=== PATIENT | male | born 1970 | race Caucasian/White ===

== ENCOUNTER 2018-10-08 15:51 | Inpatient (IN) | payer OTHER ==
[2018-10-08 18:17] VITALS: BMI 25.1
--- NOTE | 2018-10-08 19:01 | HP ---
CIWA Score Nausea/Vomitin Muscle Tremors: 2 Anxiety: 3 Agitation: 1-Slight > Activity Paroxysmal Sweats: 2 Orientation: 1-Uncertain about Date Tacttile Disturbances: 2-Mild Itch/Numbness/Burn Auditory Disturbances: 1-Very Mild Visual Disturbances: 1-Very Mild Sensitivity Headache: 2-Mild CIWA-Ar Total Score: 17 - Admission Criteria OASAS Guidelines: Admission for Medically Managed Detox: Requires at least one of the followin. CIWA greater than 12 2. Seizures within the past 24 hours 3. Delirium tremens within the past 24 hours 4. Hallucinations within the past 24 hours 5. Acute intervention needed for co occurring medical disorder 6. Acute intervention needed for co occurring psychiatric disorder 7. Severe withdrawal that cannot be handled at a lower level of care (continued vomiting, continued diarrhea, abnormal vital signs) requiring intravenous medication and/or fluids 8. Admission ROS S - [facility] Chief Complaint: WITHDRAWAL SYMPTOMS Allergies/Adverse Reactions: Allergies Allergy/AdvReac Type Severity Reaction Status Date / Time No Known Allergies Allergy Verified 10/08/18 18:56 History of Present Illness: 48 Y.O. MAN WITH AN EXTENSIVE HISTORY OF XANAX AND COCAINE DEPENDENCE IS HERE SEEKING DETOX. HE REPORTS HE LAST COMPLETED DETOX AND REHAB IN 08/2017 AT [facility]. HE STATES HE IS CURRENTLY ENROLLED AT [facility] AND REPORTS HE LAST MEDICATED TODAY (10/08/18) AT 180MG OF METHADONE. Exam Limitations: No Limitations - Ebola screening Have you traveled outside of the country in the last 21 days: No Have you had contact with anyone from an Ebola affected area: No Have you been sick,other than usual withdrawal symptoms: No Do you have a fever: No - Review of Systems Constitutional: Loss of Appetite, Unintentional Wgt. Loss EENT: reports: Tearing, Nose Congestion Respiratory: reports: Shortness of Breath Cardiac: reports: Lightheadedness GI: reports: Nausea, Poor Appetite : reports: No Symptoms Reported Musculoskeletal: reports: Back Pain, Joint Pain Integumentary: reports: No Symptoms Reported Neuro: reports: Headache, Tremors Endocrine: reports: No Symptoms Reported Hematology: reports: Anemia (ZURI) Psychiatric: reports: Anxious, Depressed Other Systems: Reviewed and Negative Patient History - Patient Medical History Hx Anemia: Yes (ZURI ) Hx Asthma: No Hx Chronic Obstructive Pulmonary Disease (COPD): Yes Hx Cancer: No Hx Cardiac Disorders: No Hx Congestive Heart Failure: No Hx Hypertension: Yes Hx Hypercholesterolemia: Yes Hx Pacemaker: No HX Cerebrovascular Accident: Yes (REPORTS MINI STROKES "FEW YEARS AGO') Hx Seizures: Yes (BENZO INDUCED-2016) Hx Dementia: No Hx Diabetes: No Hx Gastrointestinal Disorders: No Hx Liver Disease: No Hx Genitourinary Disorders: No Hx Sexually Transmitted Disorders: No Hx Renal Disease (ESRD): No Hx Thyroid Disease: No Hx Human Immunodeficiency Virus (HIV): No Hx Hepatitis C: Yes (UNTREATED AND REPORTS UNDECTABLE ) Hx Depression: Yes (ADMITTED TO [facility] FOR 1 MONTH D/T DEPRESSION IN 2017) Hx Suicide Attempt: Yes (06/2017: ATTEMPTED OVERDOSE ) Hx Bipolar Disorder: Yes Hx Schizophrenia: No - Patient Surgical History Past Surgical History: Yes Hx Appendectomy: Yes (1989) Anesthesia Reaction: No - PPD History Previous Implant?: Yes Documented Results: Negative w/o proof Implanted On Prior R Admission?: No PPD to be Administered?: Yes - Reproductive History Patient is a Female of Child Bearing Age (11 -55 yrs old): No - Smoking Cessation Smoking history: Current every day smoker Have you smoked in the past 12 months: Yes Aproximately how many cigarettes per day: 10 Initiated information on smoking cessation: Yes 'Breaking Loose' booklet given: 10/08/18 - Substance & Tx. History Hx Alcohol Use: No Hx Substance Use: Yes Substance Use Type: Tranquilizers Hx Substance Use Treatment: Yes (DETOX AND REHAB: 08/2017 AT [facility] ) - Substances Abused Alprazolam (Xanax) Route: Oral Frequency: Daily Amount used: 18MG Age of first use: 19 Date of Last Use: 10/07/18 Cocaine Route: Smoking Frequency: 3-6 times per week Amount used: $20 Age of first use: 13 Date of Last Use: 10/06/18 Family Disease History - Family Disease History Family History: Unable to Obtain (PT. ADOPTED) Admission Physical Exam S - Vital Signs Vital Signs: Vital Signs - 24 hr 10/08/18 18:15 Temperature 98.8 F Pulse Rate 65 Respiratory 18 Rate Blood Pressure 148/98 - Physical General Appearance: Yes: Disheveled, Anxious HEENTM: Yes: Hearing grossly Normal, Normocephalic, Normal Voice Respiratory: Yes: Chest Non-Tender, Lungs Clear, Normal Breath Sounds, No Respiratory Distress, No Accessory Muscle Use Neck: Yes: No masses,lesions,Nodules Breast: Yes: Breast Exam Deferred Cardiology: Yes: Regular Rhythm, Regular Rate Abdominal: Yes: Normal Bowel Sounds, Non Tender Genitourinary: Yes: Other (NO COMPLAINTS REPORTED) Back: Yes: Normal Inspection Musculoskeletal: Yes: full range of Motion, Gait Steady, Pelvis Stable Extremities: Yes: Normal Capillary Refill, Normal Inspection, Normal Range of Motion, Non-Tender Neurological: Yes: Fully Oriented, Alert, Normal Mood/Affect, Normal Response Integumentary: Yes: Normal Color, Dry, Warm Lymphatic: Yes: Within Normal Limits - Diagnostic (1) Benzodiazepine dependence Current Visit: Yes Status: Chronic (2) Cocaine dependence Current Visit: Yes Status: Chronic (3) History of seizures Current Visit: No Status: Acute (4) Nicotine dependence Current Visit: Yes Status: Chronic (5) COPD (chronic obstructive pulmonary disease) Current Visit: Yes Status: Chronic (6) Hyperlipidemia Current Visit: Yes Status: Chronic (7) Opioid dependence on agonist therapy Current Visit: Yes Status: Chronic (8) History of CVA (cerebrovascular accident) Current Visit: No Status: Acute (9) Hepatitis C Current Visit: Yes Status: Chronic Cleared for Admission [facility] - Detox or Rehab [facility] Level of Care: Medically Managed Detox Regimen/Protocol: Valium S Breath Alcohol Content Breath Alcohol Content: 0 Urine Drug Screen - Results Drug Screen Negative: No Urine Drug Screen Results: THC-Marijuana, RAJ-Cocaine, OPI-Opiates, BZO- Benzodiazepines, MTD-Methadone
[2018-10-08] MEDS ORDERED: MAGNESIUM CITRATE 300 ML BOTTLE PO PRN (19:07)
[2018-10-08] MEDS ORDERED: NICOTINE POLACRILEX 2 MG GUM BC PRN (19:07)
[2018-10-08] MEDS ORDERED: IBUPROFEN 400 MG TABLET (FP) PO PRN (19:07)
[2018-10-08] MEDS ORDERED: MENTHOL/PHENOL 1 EACH UD MM PRN (19:07)
[2018-10-08] MEDS ORDERED: LOPERAMIDE HCL 2 MG CAPSULE PO PRN (19:07)
[2018-10-08] MEDS ORDERED: diazePAM 5 MG TABLET PO ONE (19:07)
[2018-10-08] MEDS ORDERED: hydrOXYzine PAMOATE 50 MG CAPSULE (FP) PO PRN (19:07)
[2018-10-08] MEDS ORDERED: MAGNESIUM HYDROX 2400MG/30ML ORAL SUSPENSION 30 ML CUP PO PRN (19:07)
[2018-10-08] MEDS ORDERED: P-EPHED 60MG/TRIPROLIDI 2.5MG TABLET PO PRN (19:07)
[2018-10-08] MEDS ORDERED: guaiFENesin/D-METHORPHAN HB 10 ML UNIT-DOSE CUPS PO PRN (19:07)
[2018-10-08] MEDS ORDERED: ACETAMINOPHEN 325 MG TABLET (FP) PO PRN (19:07)
[2018-10-08] MEDS ORDERED: SUVOREXANT 10 MG TABLET PO PRN (19:12)
[2018-10-08] MEDS ORDERED: MELATONIN 5 MG TABLETS PO PRN (22:00)
[2018-10-08] MEDS: LISINOPRIL 10 MG TABLET (FP) PO SCH (22:08)
[2018-10-08] MEDS: ATORVASTATIN CA 20 MG TABLET (FP) PO SCH (22:08)
[2018-10-08] MEDS: THIAMINE HCL 100 MG TABLET (FP) PO SCH (22:09)
[2018-10-08] MEDS: diazePAM 5 MG TABLET PO SCH (22:41)
[2018-10-09] MEDS: diazePAM 5 MG TABLET PO SCH ×3 (05:17→22:55)
[2018-10-09 10:43] LABS: HEMOGLOBIN 13.1 GM/dL (11.7-16.9); MCH 29.8 pg (25.7-33.7); MCHC 34.4 g/dl (32.0-35.9); MEAN CELL VOLUME 86.6 fl (80-96); MEAN PLT VOLUME 9.1 fl (7.5-11.1); PLATELET COUNT 215 K/MM3 (134-434); RBC 4.39 M/mm3 (4.00-5.60); RDW 14.8 % (11.9-15.9); WHITE BLOOD COUNT 7.1 K/mm3 (4.0-10.0)
[2018-10-09] MEDS: LISINOPRIL 10 MG TABLET (FP) PO SCH (10:46)
[2018-10-09] MEDS: NICOTINE 14 MG/24 HOURS TOPICAL PATCH TD SCH (10:46)
[2018-10-09] MEDS: PRENATAL VITAMINS W/ FOLIC ACID TABLET (FP) PO SCH (10:46)
[2018-10-09] MEDS: diazePAM 5 MG TABLET PO PRN ×2 (10:46→19:54)
--- NOTE | 2018-10-09 10:49 | CONSULT ---
[facility] Psychiatric Consult - Data Date of interview: 10/09/18 Admission source: [facility] Identifying data: This the first admission to [address] [place] [address] for this 48 years old single childless male,undomiciled,unemployed,supported by PA. Substance Abuse History: Reports long history of heroin use,currently on MMTP 180 mg,Xanax since 19 yo,18 mg daily,cocaine since 13 yo,spending $ 20 3-6 times a week. Medical History: Significant for HTN,COPD,Anemia,Hep C,Hyperlipidemia,H/O Mini stroke,H/O seizures. Psychiatric History: Patient reports long and extensive psychiatric history ,dx with Bipolar disorder about 10 years ago.Patient reports a few psychiatric hospitalizations,most recent to [facility] in Jun 2018 due to severe depression,drug use.Patient reports a few suicidal attempts (DOD).He wason different mood stabilizers,but stopped all psychotropic medications more than 1 year ago and is not willing to restart it at [facility] since he"feels ok mentally. " Physical/Sexual Abuse/Trauma History: Patient denies. Mental Status Exam - Mental Status Exam Alert and Oriented to: Time, Place, Person Cognitive Function: Grossly Intact Patient Appearance: Unkempt Mood: Anxious Affect: Mood Congruent, Labile Patient Behavior: Cooperative Speech Pattern: Clear Voice Loudness: Normal Thought Process: Goal Oriented Thought Disorder: Not Present Hallucinations: Denies Suicidal Ideation: Denies Homicidal Ideation: Denies Insight/Judgement: Fair Sleep: Fair Appetite: Fair Muscle strength/Tone: Normal Gait/Station: Normal Psychiatric Findings - Problem List ([place] 1, 2,3) (1) Benzodiazepine dependence Current Visit: Yes Status: Chronic (2) Hepatitis C Current Visit: Yes Status: Chronic (3) Hyperlipidemia Current Visit: Yes Status: Chronic (4) Nicotine dependence Current Visit: Yes Status: Chronic (5) Opioid dependence on agonist therapy Current Visit: Yes Status: Chronic (6) History of CVA (cerebrovascular accident) Current Visit: Yes Status: Chronic (7) Bipolar disorder Current Visit: Yes Status: Chronic - Initial Treatment Plan Initial Treatment Plan: Will monitor progress,consider mood stabilizers, antidepressants if needed.
[2018-10-09 10:58] LABS: ALBUMIN 3.7 g/dl (3.4-5.0); ALK PHOS 85 U/L (45-117); ANION GAP 9 MMOL/L (8-16); BILIRUBIN,TOTAL 0.4 mg/dL (0.2-1); BLOOD UREA NITROGEN 14 mg/dL (7-18); CALCIUM 8.6 mg/dL (8.5-10.1); CHLORIDE 104 mmol/L (98-107); CO2 29 mmol/L (21-32); CREATININE 0.8 mg/dL (0.55-1.3); GLUCOSE,RANDOM 81 mg/dL (74-106); POTASSIUM 4.2 mmol/L (3.5-5.1); SGOT/AST 25 U/L (15-37); SGPT/ALT 20 U/L (13-61); SODIUM 143 mmol/L (136-145); TOT PROT 7.3 g/dl (6.4-8.2)
[2018-10-09] MEDS ORDERED: METHADONE HCL 10 MG TABLET PO ONE (11:23)
[2018-10-09] MEDS ORDERED: METHADONE 160 MG, METHADONE 20 MG PO ONE (11:30)
--- NOTE | 2018-10-09 11:51 | EKG ---
Test Reason : Blood Pressure : / mmHG Vent. Rate : 048 BPM Atrial Rate : 048 BPM P-R Int : 172 ms QRS Dur : 088 ms QT Int : 458 ms P-R-T Axes : 062 052 067 degrees QTc Int : 409 ms SINUS BRADYCARDIA OTHERWISE NORMAL ECG NO PREVIOUS ECGS AVAILABLE Confirmed by SARMAD RODRIGUEZ, KALA ([id number]) on 10/09/2018 11:50:48 AM Referred By: Confirmed By:KALA BAÑUELOS MD
[2018-10-09] MEDS ORDERED: METHADONE HCL 40 MG DISPERSABLE TABLET ONE (12:07)
[2018-10-09] MEDS ORDERED: METHADONE HCL 10 MG TABLET ONE (12:07)
--- NOTE | 2018-10-09 12:17 | PN ---
S CIWA - CIWA Score Nausea/Vomitin-No Nausea/No Vomiting Muscle Tremors: 4-Moderate,w/Arms Extend Anxiety: 4-Mod. Anxious/Guarded Agitation: 4-Moderately Restless Paroxysmal Sweats: 3 Orientation: 0-Oriented Tacttile Disturbances: 0-None Auditory Disturbances: 0-None Visual Disturbances: 0-None Headache: 0-None Present CIWA-Ar Total Score: 15 BHS Progress Note (SOAP) Subjective: agitation sweats shakes interrupted sleep body aches Objective: 10/09/18 12:16 Vital Signs Temperature 98.1 F 10/09/18 09:16 Pulse Rate 66 10/09/18 09:16 Respiratory Rate 18 10/09/18 09:16 Blood Pressure 135/74 10/09/18 09:16 O2 Sat by Pulse Oximetry (%) Laboratory Tests 10/09/18 10/09/18 10/09/18 07:00 07:00 07:00 WBC 7.1 RBC 4.39 Hgb 13.1 Hct 38.0 MCV 86.6 MCH 29.8 MCHC 34.4 RDW 14.8 Plt Count 215 MPV 9.1 Sodium 143 Potassium 4.2 Chloride 104 Carbon Dioxide 29 Anion Gap 9 BUN 14 Creatinine 0.8 Creat Clearance w eGFR > 60 Random Glucose 81 Calcium 8.6 Total Bilirubin 0.4 AST 25 ALT 20 Alkaline Phosphatase 85 Total Protein 7.3 Albumin 3.7 HIV 1&2 Antibody Screen Negative HIV P24 Antigen Negative aaox3 ambulating no acute distress Assessment: 10/09/18 12:16 withdrawal sx Plan: continue detox increase fluids
[2018-10-09] MEDS: MAG HYDROX/AL HYDROX/SIMETH 30 ML UNIT-DOSE CUP PO PRN (12:23)
[2018-10-09] MEDS ORDERED: PANTOPRAZOLE 40 MG TABLET (FP) PO ONE (15:11)
[2018-10-09] MEDS: ATORVASTATIN CA 20 MG TABLET (FP) PO SCH (22:54)
[2018-10-09] MEDS: THIAMINE HCL 100 MG TABLET (FP) PO SCH (22:55)
[2018-10-10] MEDS ORDERED: METHADONE HCL 10 MG TABLET ONE (05:05)
[2018-10-10] MEDS ORDERED: METHADONE HCL 40 MG DISPERSABLE TABLET ONE (05:05)
[2018-10-10] MEDS: METHADONE 160 MG, METHADONE 20 MG PO SCH (05:56)
[2018-10-10] MEDS ORDERED: METHADONE HCL 40 MG DISPERSABLE TABLET PO SCH (06:00)
[2018-10-10] MEDS: MAG HYDROX/AL HYDROX/SIMETH 30 ML UNIT-DOSE CUP PO PRN ×2 (07:45→15:07)
[2018-10-10] MEDS: diazePAM 5 MG TABLET PO PRN ×3 (07:45→20:52)
[2018-10-10] MEDS: PRENATAL VITAMINS W/ FOLIC ACID TABLET (FP) PO SCH (10:46)
[2018-10-10] MEDS: NICOTINE 14 MG/24 HOURS TOPICAL PATCH TD SCH (10:46)
[2018-10-10] MEDS: diazePAM 5 MG TABLET PO SCH (10:46)
[2018-10-10] MEDS: PANTOPRAZOLE 40 MG TABLET (FP) PO SCH (10:46)
[2018-10-10] MEDS: LISINOPRIL 10 MG TABLET (FP) PO SCH (10:46)
--- NOTE | 2018-10-10 11:49 | PN ---
S CIWA - CIWA Score Nausea/Vomitin Muscle Tremors: 2 Anxiety: 2 Agitation: 2 Paroxysmal Sweats: 2 Orientation: 0-Oriented Tacttile Disturbances: 1-Very Mild Itch/Numbness Auditory Disturbances: 1-Very Mild Visual Disturbances: 0-None Headache: 2-Mild CIWA-Ar Total Score: 14 S Progress Note (SOAP) Subjective: Diarrhea, sweats, tremors and interrupted sleep Objective: 10/10/18 11:47 Vital Signs - 8 hr 10/10/18 10/10/18 06:00 09:42 Temperature 97.7 F 98.7 F Pulse Rate 46 L 55 L Respiratory 18 19 Rate Blood Pressure 129/71 125/65 Laboratory Last Values WBC 7.1 K/mm3 (4.0-10.0) 10/09/18 07:00 RBC 4.39 M/mm3 (4.00-5.60) 10/09/18 07:00 Hgb 13.1 GM/dL (11.7-16.9) 10/09/18 07:00 Hct 38.0 % (35.4-49) 10/09/18 07:00 MCV 86.6 fl (80-96) 10/09/18 07:00 MCH 29.8 pg (25.7-33.7) 10/09/18 07:00 MCHC 34.4 g/dl (32.0-35.9) 10/09/18 07:00 RDW 14.8 % (11.9-15.9) 10/09/18 07:00 Plt Count 215 K/MM3 (134-434) 10/09/18 07:00 MPV 9.1 fl (7.5-11.1) 10/09/18 07:00 Sodium 143 mmol/L (136-145) 10/09/18 07:00 Potassium 4.2 mmol/L (3.5-5.1) 10/09/18 07:00 Chloride 104 mmol/L (98-107) 10/09/18 07:00 Carbon Dioxide 29 mmol/L (21-32) 10/09/18 07:00 Anion Gap 9 MMOL/L (8-16) 10/09/18 07:00 BUN 14 mg/dL (7-18) 10/09/18 07:00 Creatinine 0.8 mg/dL (0.55-1.3) 10/09/18 07:00 Creat Clearance w eGFR > 60 (>60) 10/09/18 07:00 Random Glucose 81 mg/dL (74-106) 10/09/18 07:00 Calcium 8.6 mg/dL (8.5-10.1) 10/09/18 07:00 Total Bilirubin 0.4 mg/dL (0.2-1) 10/09/18 07:00 AST 25 U/L (15-37) 10/09/18 07:00 ALT 20 U/L (13-61) 10/09/18 07:00 Alkaline Phosphatase 85 U/L (45-117) 10/09/18 07:00 Total Protein 7.3 g/dl (6.4-8.2) 10/09/18 07:00 Albumin 3.7 g/dl (3.4-5.0) 10/09/18 07:00 RPR Titer Nonreactive (NONREACTIVE) 10/09/18 07:00 HIV 1&2 Antibody Screen Negative 10/09/18 07:00 HIV P24 Antigen Negative 10/09/18 07:00 Labs noted-No panic values Assessment: 10/10/18 11:48 Withdrawal sx Plan: Continue detox
[2018-10-11] MEDS: ATORVASTATIN CA 20 MG TABLET (FP) PO SCH (00:37)
[2018-10-11] MEDS: diazePAM 5 MG TABLET PO SCH ×2 (00:38→10:46)
[2018-10-11] MEDS: THIAMINE HCL 100 MG TABLET (FP) PO SCH (00:38)
[2018-10-11] MEDS ORDERED: METHADONE HCL 10 MG TABLET ONE (05:35)
[2018-10-11] MEDS ORDERED: METHADONE HCL 40 MG DISPERSABLE TABLET ONE (05:35)
[2018-10-11] MEDS: METHADONE 160 MG, METHADONE 20 MG PO SCH (05:51)
[2018-10-11] MEDS: MAG HYDROX/AL HYDROX/SIMETH 30 ML UNIT-DOSE CUP PO PRN (07:54)
[2018-10-11] MEDS: NICOTINE 14 MG/24 HOURS TOPICAL PATCH TD SCH (10:46)
[2018-10-11] MEDS: PANTOPRAZOLE 40 MG TABLET (FP) PO SCH (10:46)
[2018-10-11] MEDS: LISINOPRIL 10 MG TABLET (FP) PO SCH (10:46)
[2018-10-11] MEDS: PRENATAL VITAMINS W/ FOLIC ACID TABLET (FP) PO SCH (10:46)
[2018-10-11] MEDS ORDERED: ONDANSETRON *ODT* 4 MG TABLET SL PRN (11:27)
--- NOTE | 2018-10-11 14:46 | PN ---
S Progress Note (SOAP) Subjective: Anxiety, diarrhea, nausea, chills, sweating, interrupted sleep Objective: 10/11/18 14:44 Last Vital Signs Temp Pulse Resp BP Pulse Ox 97.9 F 47 L 18 113/66 10/11/18 14:26 10/11/18 14:26 10/11/18 14:26 10/11/18 14:26 Bradycardia: pulse 47, asymptomatic, encouraged PO hydration Laboratory Tests 10/09/18 10/09/18 10/09/18 07:00 07:00 07:00 WBC 7.1 RBC 4.39 Hgb 13.1 Hct 38.0 MCV 86.6 MCH 29.8 MCHC 34.4 RDW 14.8 Plt Count 215 MPV 9.1 Sodium 143 Potassium 4.2 Chloride 104 Carbon Dioxide 29 Anion Gap 9 BUN 14 Creatinine 0.8 Creat Clearance w eGFR > 60 Random Glucose 81 Calcium 8.6 Total Bilirubin 0.4 AST 25 ALT 20 Alkaline Phosphatase 85 Total Protein 7.3 Albumin 3.7 RPR Titer Nonreactive HIV 1&2 Antibody Screen HIV P24 Antigen 10/09/18 07:00 WBC RBC Hgb Hct MCV MCH MCHC RDW Plt Count MPV Sodium Potassium Chloride Carbon Dioxide Anion Gap BUN Creatinine Creat Clearance w eGFR Random Glucose Calcium Total Bilirubin AST ALT Alkaline Phosphatase Total Protein Albumin RPR Titer HIV 1&2 Antibody Screen Negative HIV P24 Antigen Negative Labs reviewed Assessment: 10/11/18 14:45 Withdrawal symptoms Plan: Continue detox Encouraged PO water hydration Zofran 4mg SL q8hr prn for n/v
[2018-10-11] MEDS: diazePAM 5 MG TABLET PO PRN (18:02)
[2018-10-12] MEDS: THIAMINE HCL 100 MG TABLET (FP) PO SCH (00:03)
[2018-10-12] MEDS: diazePAM 5 MG TABLET PO SCH (00:03)
[2018-10-12] MEDS: ATORVASTATIN CA 20 MG TABLET (FP) PO SCH (00:03)
[2018-10-12] MEDS ORDERED: METHADONE HCL 10 MG TABLET ONE (04:37)
[2018-10-12] MEDS ORDERED: METHADONE HCL 40 MG DISPERSABLE TABLET ONE (04:37)
[2018-10-12] MEDS: METHADONE 160 MG, METHADONE 20 MG PO SCH (05:33)
[2018-10-12] MEDS ORDERED: diazePAM 5 MG TABLET PO SCH (10:00)
[2018-10-12] MEDS: NICOTINE 14 MG/24 HOURS TOPICAL PATCH TD SCH (10:28)
[2018-10-12] MEDS: LISINOPRIL 10 MG TABLET (FP) PO SCH (10:28)
[2018-10-12] MEDS: PRENATAL VITAMINS W/ FOLIC ACID TABLET (FP) PO SCH (10:28)
[2018-10-12] MEDS: PANTOPRAZOLE 40 MG TABLET (FP) PO SCH (10:28)
--- NOTE | 2018-10-12 15:02 | DS ---
[facility] Detox Discharge Summary Admission Date: 10/08/18 Discharge Date: 10/12/18 - History Present History: Cocaine Dependence, Opioid Dependence, Sedative Dependence, MMTP Additional Comments: PATIENT SCHEDULED FOR DISCHARGE FROM DETOX UNIT TO DAY. PATIENT GOING TO [facility] ([facility]) FOR AFTERCARE. PATIENT WAS DISCHARGED FROM DETOX UNIT TO BE TAKEN OVER TO REHAB UNIT IN STABLE MEDICAL CONDITION. Pertinent Past History: History of Anemia, History of Depression, HTN, Hypercholesterolemia, H.I.V., Hep C, History of seizures, Nicotine Dependence, History of C.O.P.D., History of CVA. - Physical Exam Results Vital Signs: Vital Signs Temperature 98.6 F 10/12/18 13:22 Pulse Rate 48 L 10/12/18 13:22 Respiratory Rate 18 10/12/18 13:22 Blood Pressure 118/65 10/12/18 13:22 O2 Sat by Pulse Oximetry (%) Pertinent Admission Physical Exam Findings: WITHDRAWAL SYMPTOMS. Laboratory Tests 10/09/18 10/09/18 10/09/18 07:00 07:00 07:00 WBC 7.1 RBC 4.39 Hgb 13.1 Hct 38.0 MCV 86.6 MCH 29.8 MCHC 34.4 RDW 14.8 Plt Count 215 MPV 9.1 Sodium 143 Potassium 4.2 Chloride 104 Carbon Dioxide 29 Anion Gap 9 BUN 14 Creatinine 0.8 Creat Clearance w eGFR > 60 Random Glucose 81 Calcium 8.6 Total Bilirubin 0.4 AST 25 ALT 20 Alkaline Phosphatase 85 Total Protein 7.3 Albumin 3.7 RPR Titer Nonreactive HIV 1&2 Antibody Screen HIV P24 Antigen 10/09/18 07:00 WBC RBC Hgb Hct MCV MCH MCHC RDW Plt Count MPV Sodium Potassium Chloride Carbon Dioxide Anion Gap BUN Creatinine Creat Clearance w eGFR Random Glucose Calcium Total Bilirubin AST ALT Alkaline Phosphatase Total Protein Albumin RPR Titer HIV 1&2 Antibody Screen Negative HIV P24 Antigen Negative LABS NOTED. - Treatment Hospital Course: Detox Protocol Followed, Detoxed Safely, Responded well, Discharged Condition Good, Rehab Referral Accepted Patient has Accepted a Rehab Referral to: [facility] ([place], [place]). - Medication Discharge Medications: Ambulatory Orders NK [No Known Home Medication] 10/08/18 - Diagnosis (1) Benzodiazepine dependence Current Visit: Yes Status: Acute (2) Opioid dependence on agonist therapy Current Visit: Yes Status: Chronic (3) Anemia Current Visit: Yes Status: Chronic Qualifiers: Anemia type: unspecified type Qualified Code(s): D64.9 - Anemia, unspecified (4) Bipolar disorder Current Visit: Yes Status: Chronic Qualifiers: Active/Remission status: remission status unspecified Qualified Code(s): F31.9 - Bipolar disorder, unspecified (5) COPD (chronic obstructive pulmonary disease) Current Visit: Yes Status: Chronic Qualifiers: COPD type: unspecified COPD Qualified Code(s): J44.9 - Chronic obstructive pulmonary disease, unspecified (6) Cocaine dependence Current Visit: Yes Status: Chronic Qualifiers: Substance use status: uncomplicated Qualified Code(s): F14.20 - Cocaine dependence, uncomplicated (7) Depression Current Visit: Yes Status: Chronic Qualifiers: Depression Type: unspecified Qualified Code(s): F32.9 - Major depressive disorder, single episode, unspecified (8) Hepatitis C Current Visit: Yes Status: Chronic Qualifiers: Viral hepatitis chronicity: chronic Hepatic coma status: without hepatic coma Qualified Code(s): B18.2 - Chronic viral hepatitis C (9) History of CVA (cerebrovascular accident) Current Visit: Yes Status: Chronic (10) History of seizures Current Visit: Yes Status: Chronic (11) Hyperlipidemia Current Visit: Yes Status: Chronic Qualifiers: Hyperlipidemia type: pure hypercholesterolemia Qualified Code(s): E78.00 - Pure hypercholesterolemia, unspecified; E78.0 - Pure hypercholesterolemia (12) Nicotine dependence Current Visit: Yes Status: Chronic Qualifiers: Nicotine product type: cigarettes Substance use status: uncomplicated Qualified Code(s): F17.210 - Nicotine dependence, cigarettes, uncomplicated - AMA Did Patient Leave Against Medical Advice: No
[2018-10-12 17:53] VITALS: BP 142/93; PULSE 54; TEMP 98.2
== END 2018-10-12 18:25 | disposition home or self-care (01) | DRG 773 ==
LOC: YASAS 15:51 → Y6N 20:46
PROVIDERS: ADMIT Neuromusculoskeletal Medicine & OMM; ATTEND Neuromusculoskeletal Medicine & OMM
PROC: HZ2ZZZZ Detoxification Services for Substance Abuse Treatment (ICD-10-PCS; principal; 2018-10-08)
DX: F13.230 Sedative, hypnotic or anxiolytic dependence with withdrawal, uncomplicated (principal); F11.20 Opioid dependence, uncomplicated; F14.20 Cocaine dependence, uncomplicated; F17.210 Nicotine dependence, cigarettes, uncomplicated; F31.9 Bipolar disorder, unspecified; E78.5 Hyperlipidemia, unspecified; D64.9 Anemia, unspecified; J44.9 Chronic obstructive pulmonary disease, unspecified; B18.2 Chronic viral hepatitis C; Z86.73 Personal history of transient ischemic attack (TIA), and cerebral infarction without residual deficits; Z86.69 Personal history of other diseases of the nervous system and sense organs; Z91.5 Personal history of self-harm; Z59.0 Homelessness
CPT/HCPCS: 36415; 80053; 85027; 86593; 87389; 93005; 93010

== ENCOUNTER 2018-10-12 18:57 | Inpatient (IN) | payer OTHER ==
--- NOTE | 2018-10-12 15:09 | HP ---
JENIFER RODRIGUEZ Rehab Assess/Revision - Admission History Admitted to Rehab from[facility] Date of Admission to Rehab: 10/12/2018 - Vital signs Vital Signs: NOTED; STABLE. - Findings Detox History & Physical reviewed: Yes Concur with findings: Yes Comments/Additional Findings: PATIENT'S MEDICAL / MEDICATION HISTORY REVIEWED PRIOR TO DISCHARGE FROM DETOX UNIT. PATIENT WAS DISCHARGED FROM DETOX UNIT TO BE TAKEN TO REHAB UNIT IN STABLE MEDICAL CONDITION. Inpatient Rehab Admission - Initial Determination Are CD services needed?: Yes Free of communicable disease: Yes Not in need of hospitalization: Yes - Rehab Admission Criteria Previous failed treatment: Yes Comorbidities: Yes Patient is meeting Inpatient Rehab admission criteria:: Yes
[~2018-10-12 18:57] MED LIST: ACETAMINOPHEN 325 MG TABLET (FP) PO PRN; IBUPROFEN 400 MG TABLET (FP) PO PRN; LOPERAMIDE HCL 2 MG CAPSULE PO PRN; MAG HYDROX/AL HYDROX/SIMETH 30 ML UNIT-DOSE CUP PO PRN; MAGNESIUM CITRATE 300 ML BOTTLE PO PRN; MAGNESIUM HYDROX 2400MG/30ML ORAL SUSPENSION 30 ML CUP PO PRN; MENTHOL/PHENOL 1 EACH UD MM PRN; NICOTINE POLACRILEX 2 MG GUM BUC PRN; P-EPHED 60MG/TRIPROLIDI 2.5MG TABLET PO PRN; guaiFENesin/D-METHORPHAN HB 10 ML UNIT-DOSE CUPS PO PRN
[2018-10-12] MEDS: ATORVASTATIN CA 20 MG TABLET (FP) PO SCH (22:11)
[2018-10-12] MEDS: THIAMINE HCL 100 MG TABLET (FP) PO SCH (22:11)
[2018-10-13] MEDS ORDERED: METHADONE HCL 10 MG TABLET ONE (05:05)
[2018-10-13] MEDS ORDERED: METHADONE HCL 40 MG DISPERSABLE TABLET ONE (05:06)
[2018-10-13] MEDS ORDERED: METHADONE HCL 40 MG DISPERSABLE TABLET PO SCH (06:00)
[2018-10-13] MEDS: METHADONE 160 MG, METHADONE 20 MG PO SCH (06:07)
[2018-10-13] MEDS: NICOTINE 14 MG/24 HOURS TOPICAL PATCH TD SCH (10:30)
[2018-10-13] MEDS: LISINOPRIL 10 MG TABLET (FP) PO SCH (10:30)
[2018-10-13] MEDS: PANTOPRAZOLE 40 MG TABLET (FP) PO SCH (10:30)
[2018-10-13] MEDS: PRENATAL VITAMINS W/ FOLIC ACID TABLET (FP) PO SCH (10:30)
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
[2018-10-13] MEDS: ATORVASTATIN CA 20 MG TABLET (FP) PO SCH (21:31)
[2018-10-13] MEDS: THIAMINE HCL 100 MG TABLET (FP) PO SCH (21:31)
[2018-10-14] MEDS ORDERED: METHADONE HCL 40 MG DISPERSABLE TABLET ONE (04:07)
[2018-10-14] MEDS ORDERED: METHADONE HCL 10 MG TABLET ONE (04:07)
[2018-10-14] MEDS: METHADONE 160 MG, METHADONE 20 MG PO SCH (06:06)
[2018-10-14] MEDS: LISINOPRIL 10 MG TABLET (FP) PO SCH (10:24)
[2018-10-14] MEDS: PANTOPRAZOLE 40 MG TABLET (FP) PO SCH (10:24)
[2018-10-14] MEDS: PRENATAL VITAMINS W/ FOLIC ACID TABLET (FP) PO SCH (10:24)
[2018-10-14] MEDS: NICOTINE 14 MG/24 HOURS TOPICAL PATCH TD SCH (10:24)
[2018-10-14] MEDS: ATORVASTATIN CA 20 MG TABLET (FP) PO SCH (21:34)
[2018-10-14] MEDS: THIAMINE HCL 100 MG TABLET (FP) PO SCH (21:34)
[2018-10-15] MEDS ORDERED: METHADONE HCL 10 MG TABLET ONE (02:48)
[2018-10-15] MEDS ORDERED: METHADONE HCL 40 MG DISPERSABLE TABLET ONE (02:48)
[2018-10-15] MEDS: METHADONE 160 MG, METHADONE 20 MG PO SCH (06:15)
[2018-10-15] MEDS: PRENATAL VITAMINS W/ FOLIC ACID TABLET (FP) PO SCH (10:32)
[2018-10-15] MEDS: NICOTINE 14 MG/24 HOURS TOPICAL PATCH TD SCH (10:32)
[2018-10-15] MEDS: PANTOPRAZOLE 40 MG TABLET (FP) PO SCH (10:32)
[2018-10-15] MEDS: LISINOPRIL 10 MG TABLET (FP) PO SCH (10:32)
[2018-10-15] MEDS: GABAPENTIN 300 MG CAPSULE (FP) PO SCH ×2 (14:42→22:00)
[2018-10-15] MEDS: THIAMINE HCL 100 MG TABLET (FP) PO SCH (22:00)
[2018-10-15] MEDS: ATORVASTATIN CA 20 MG TABLET (FP) PO SCH (22:00)
[2018-10-15] MEDS: QUEtiapine FUMARATE 100 MG TABLET (FP) PO SCH (22:00)
[2018-10-16] MEDS ORDERED: METHADONE HCL 40 MG DISPERSABLE TABLET ONE (04:16)
[2018-10-16] MEDS ORDERED: METHADONE HCL 10 MG TABLET ONE (04:16)
[2018-10-16] MEDS: METHADONE 160 MG, METHADONE 20 MG PO SCH (06:25)
[2018-10-16] MEDS: GABAPENTIN 300 MG CAPSULE (FP) PO SCH ×3 (06:25→21:52)
[2018-10-16] MEDS: PRENATAL VITAMINS W/ FOLIC ACID TABLET (FP) PO SCH (10:34)
[2018-10-16] MEDS: LISINOPRIL 10 MG TABLET (FP) PO SCH (10:34)
[2018-10-16] MEDS: NICOTINE 14 MG/24 HOURS TOPICAL PATCH TD SCH (10:34)
[2018-10-16] MEDS: PANTOPRAZOLE 40 MG TABLET (FP) PO SCH (10:34)
[2018-10-16] MEDS: THIAMINE HCL 100 MG TABLET (FP) PO SCH (21:51)
[2018-10-16] MEDS: ATORVASTATIN CA 20 MG TABLET (FP) PO SCH (21:52)
[2018-10-16] MEDS: QUEtiapine FUMARATE 100 MG TABLET (FP) PO SCH (21:53)
[2018-10-17] MEDS ORDERED: METHADONE HCL 40 MG DISPERSABLE TABLET ONE (04:12)
[2018-10-17] MEDS ORDERED: METHADONE HCL 10 MG TABLET ONE (04:12)
[2018-10-17] MEDS: GABAPENTIN 300 MG CAPSULE (FP) PO SCH ×3 (06:13→21:44)
[2018-10-17] MEDS: METHADONE 160 MG, METHADONE 20 MG PO SCH (06:13)
[2018-10-17] MEDS: PRENATAL VITAMINS W/ FOLIC ACID TABLET (FP) PO SCH (10:07)
[2018-10-17] MEDS: PANTOPRAZOLE 40 MG TABLET (FP) PO SCH (10:08)
[2018-10-17] MEDS: LISINOPRIL 10 MG TABLET (FP) PO SCH (10:08)
[2018-10-17] MEDS: NICOTINE 14 MG/24 HOURS TOPICAL PATCH TD SCH (10:08)
[2018-10-17] MEDS: QUEtiapine FUMARATE 100 MG TABLET (FP) PO SCH (21:44)
[2018-10-17] MEDS: ATORVASTATIN CA 20 MG TABLET (FP) PO SCH (21:44)
[2018-10-17] MEDS: THIAMINE HCL 100 MG TABLET (FP) PO SCH (21:44)
[2018-10-18] MEDS ORDERED: METHADONE HCL 40 MG DISPERSABLE TABLET ONE (03:54)
[2018-10-18] MEDS ORDERED: METHADONE HCL 10 MG TABLET ONE (03:54)
[2018-10-18] MEDS: GABAPENTIN 300 MG CAPSULE (FP) PO SCH ×3 (06:13→21:33)
[2018-10-18] MEDS: METHADONE 160 MG, METHADONE 20 MG PO SCH (06:13)
[2018-10-18] MEDS: PANTOPRAZOLE 40 MG TABLET (FP) PO SCH (09:53)
[2018-10-18] MEDS: NICOTINE 14 MG/24 HOURS TOPICAL PATCH TD SCH (09:53)
[2018-10-18] MEDS: LISINOPRIL 10 MG TABLET (FP) PO SCH (09:53)
[2018-10-18] MEDS: PRENATAL VITAMINS W/ FOLIC ACID TABLET (FP) PO SCH (09:53)
[2018-10-18] MEDS: THIAMINE HCL 100 MG TABLET (FP) PO SCH (21:33)
[2018-10-18] MEDS: ATORVASTATIN CA 20 MG TABLET (FP) PO SCH (21:34)
[2018-10-18] MEDS: QUEtiapine FUMARATE 100 MG TABLET (FP) PO SCH (21:34)
[2018-10-19] MEDS ORDERED: METHADONE 160 MG, METHADONE 20 MG PO SCH (06:00)
[2018-10-19] MEDS ORDERED: METHADONE HCL 40 MG DISPERSABLE TABLET ONE (06:03)
[2018-10-19] MEDS ORDERED: METHADONE HCL 10 MG TABLET ONE (06:03)
[2018-10-19] MEDS: METHADONE 160 MG, METHADONE 20 MG PO SCH (06:18)
[2018-10-19] MEDS: GABAPENTIN 300 MG CAPSULE (FP) PO SCH ×3 (06:18→21:53)
[2018-10-19] MEDS: NICOTINE 14 MG/24 HOURS TOPICAL PATCH TD SCH (10:01)
[2018-10-19] MEDS: PANTOPRAZOLE 40 MG TABLET (FP) PO SCH (10:01)
[2018-10-19] MEDS: LISINOPRIL 10 MG TABLET (FP) PO SCH (10:01)
[2018-10-19] MEDS: PRENATAL VITAMINS W/ FOLIC ACID TABLET (FP) PO SCH (10:01)
[2018-10-19] MEDS ORDERED: PT OWN MED DRAWER 7, Y5N ONE (10:22)
[2018-10-19] MEDS: THIAMINE HCL 100 MG TABLET (FP) PO SCH (21:53)
[2018-10-19] MEDS: ATORVASTATIN CA 20 MG TABLET (FP) PO SCH (21:53)
[2018-10-19] MEDS: QUEtiapine FUMARATE 100 MG TABLET (FP) PO SCH (21:53)
[2018-10-20] MEDS ORDERED: METHADONE HCL 10 MG TABLET ONE (03:12)
[2018-10-20] MEDS ORDERED: METHADONE HCL 40 MG DISPERSABLE TABLET ONE (03:12)
[2018-10-20] MEDS: METHADONE 160 MG, METHADONE 20 MG PO SCH (06:39)
[2018-10-20] MEDS: GABAPENTIN 300 MG CAPSULE (FP) PO SCH ×3 (06:39→21:57)
[2018-10-20] MEDS: LISINOPRIL 10 MG TABLET (FP) PO SCH (10:30)
[2018-10-20] MEDS: PANTOPRAZOLE 40 MG TABLET (FP) PO SCH (10:30)
[2018-10-20] MEDS: PRENATAL VITAMINS W/ FOLIC ACID TABLET (FP) PO SCH (10:30)
[2018-10-20] MEDS: NICOTINE 14 MG/24 HOURS TOPICAL PATCH TD SCH (10:30)
[2018-10-20] MEDS: ATORVASTATIN CA 20 MG TABLET (FP) PO SCH (21:57)
[2018-10-20] MEDS: QUEtiapine FUMARATE 100 MG TABLET (FP) PO SCH (21:57)
[2018-10-20] MEDS: THIAMINE HCL 100 MG TABLET (FP) PO SCH (21:58)
[2018-10-21] MEDS ORDERED: METHADONE HCL 10 MG TABLET ONE (04:17)
[2018-10-21] MEDS ORDERED: METHADONE HCL 40 MG DISPERSABLE TABLET ONE (04:17)
[2018-10-21] MEDS: METHADONE 160 MG, METHADONE 20 MG PO SCH (05:58)
[2018-10-21] MEDS: GABAPENTIN 300 MG CAPSULE (FP) PO SCH ×3 (05:58→21:50)
[2018-10-21] MEDS: PRENATAL VITAMINS W/ FOLIC ACID TABLET (FP) PO SCH (09:49)
[2018-10-21] MEDS: PANTOPRAZOLE 40 MG TABLET (FP) PO SCH (09:49)
[2018-10-21] MEDS: LISINOPRIL 10 MG TABLET (FP) PO SCH (09:49)
[2018-10-21] MEDS: NICOTINE 14 MG/24 HOURS TOPICAL PATCH TD SCH (09:49)
[2018-10-21] MEDS: QUEtiapine FUMARATE 100 MG TABLET (FP) PO SCH (21:50)
[2018-10-21] MEDS: THIAMINE HCL 100 MG TABLET (FP) PO SCH (21:50)
[2018-10-21] MEDS: ATORVASTATIN CA 20 MG TABLET (FP) PO SCH (21:50)
[2018-10-22] MEDS ORDERED: METHADONE HCL 10 MG TABLET ONE (04:08)
[2018-10-22] MEDS ORDERED: METHADONE HCL 40 MG DISPERSABLE TABLET ONE (04:08)
[2018-10-22] MEDS: METHADONE 160 MG, METHADONE 20 MG PO SCH (06:29)
[2018-10-22] MEDS: GABAPENTIN 300 MG CAPSULE (FP) PO SCH ×3 (06:29→21:45)
[2018-10-22] MEDS: NICOTINE 14 MG/24 HOURS TOPICAL PATCH TD SCH (09:51)
[2018-10-22] MEDS: PANTOPRAZOLE 40 MG TABLET (FP) PO SCH (09:51)
[2018-10-22] MEDS: PRENATAL VITAMINS W/ FOLIC ACID TABLET (FP) PO SCH (09:51)
[2018-10-22] MEDS: LISINOPRIL 10 MG TABLET (FP) PO SCH (09:51)
[2018-10-22] MEDS: THIAMINE HCL 100 MG TABLET (FP) PO SCH (21:45)
[2018-10-22] MEDS: ATORVASTATIN CA 20 MG TABLET (FP) PO SCH (21:45)
[2018-10-22] MEDS: QUEtiapine FUMARATE 100 MG TABLET (FP) PO SCH (21:45)
[2018-10-23] MEDS ORDERED: METHADONE HCL 10 MG TABLET ONE (04:06)
[2018-10-23] MEDS ORDERED: METHADONE HCL 40 MG DISPERSABLE TABLET ONE (04:06)
[2018-10-23] MEDS: GABAPENTIN 300 MG CAPSULE (FP) PO SCH ×3 (06:12→21:44)
[2018-10-23] MEDS: METHADONE 160 MG, METHADONE 20 MG PO SCH (06:12)
[2018-10-23] MEDS: NICOTINE 14 MG/24 HOURS TOPICAL PATCH TD SCH (10:10)
[2018-10-23] MEDS: PRENATAL VITAMINS W/ FOLIC ACID TABLET (FP) PO SCH (10:10)
[2018-10-23] MEDS: PANTOPRAZOLE 40 MG TABLET (FP) PO SCH (10:10)
[2018-10-23] MEDS: LISINOPRIL 10 MG TABLET (FP) PO SCH (10:11)
[2018-10-23] MEDS: THIAMINE HCL 100 MG TABLET (FP) PO SCH (21:44)
[2018-10-23] MEDS: QUEtiapine FUMARATE 100 MG TABLET (FP) PO SCH (21:45)
[2018-10-23] MEDS: ATORVASTATIN CA 20 MG TABLET (FP) PO SCH (21:45)
[2018-10-24] MEDS ORDERED: METHADONE HCL 40 MG DISPERSABLE TABLET ONE (03:21)
[2018-10-24] MEDS ORDERED: METHADONE HCL 10 MG TABLET ONE (03:21)
[2018-10-24] MEDS: GABAPENTIN 300 MG CAPSULE (FP) PO SCH ×3 (06:20→21:57)
[2018-10-24] MEDS: METHADONE 160 MG, METHADONE 20 MG PO SCH (06:20)
[2018-10-24] MEDS: NICOTINE 14 MG/24 HOURS TOPICAL PATCH TD SCH (10:03)
[2018-10-24] MEDS: LISINOPRIL 10 MG TABLET (FP) PO SCH (10:03)
[2018-10-24] MEDS: PRENATAL VITAMINS W/ FOLIC ACID TABLET (FP) PO SCH (10:03)
[2018-10-24] MEDS: PANTOPRAZOLE 40 MG TABLET (FP) PO SCH (10:03)
[2018-10-24] MEDS: QUEtiapine FUMARATE 100 MG TABLET (FP) PO SCH (21:57)
[2018-10-24] MEDS: ATORVASTATIN CA 20 MG TABLET (FP) PO SCH (21:57)
[2018-10-24] MEDS: THIAMINE HCL 100 MG TABLET (FP) PO SCH (21:57)
[2018-10-25] MEDS ORDERED: METHADONE HCL 10 MG TABLET ONE (02:48)
[2018-10-25] MEDS ORDERED: METHADONE HCL 40 MG DISPERSABLE TABLET ONE (02:48)
[2018-10-25] MEDS: GABAPENTIN 300 MG CAPSULE (FP) PO SCH ×3 (06:23→23:13)
[2018-10-25] MEDS: METHADONE 160 MG, METHADONE 20 MG PO SCH (06:23)
[2018-10-25] MEDS: NICOTINE 14 MG/24 HOURS TOPICAL PATCH TD SCH (09:57)
[2018-10-25] MEDS: LISINOPRIL 10 MG TABLET (FP) PO SCH (09:57)
[2018-10-25] MEDS: PRENATAL VITAMINS W/ FOLIC ACID TABLET (FP) PO SCH (09:58)
[2018-10-25] MEDS: PANTOPRAZOLE 40 MG TABLET (FP) PO SCH (09:58)
[2018-10-25] MEDS: ATORVASTATIN CA 20 MG TABLET (FP) PO SCH (23:13)
[2018-10-25] MEDS: QUEtiapine FUMARATE 100 MG TABLET (FP) PO SCH (23:13)
[2018-10-25] MEDS: THIAMINE HCL 100 MG TABLET (FP) PO SCH (23:14)
[2018-10-26] MEDS ORDERED: METHADONE HCL 10 MG TABLET ONE (04:06)
[2018-10-26] MEDS ORDERED: METHADONE HCL 40 MG DISPERSABLE TABLET ONE (04:06)
[2018-10-26] MEDS: METHADONE 160 MG, METHADONE 20 MG PO SCH (06:26)
[2018-10-26] MEDS: GABAPENTIN 300 MG CAPSULE (FP) PO SCH ×3 (06:27→21:57)
[2018-10-26] MEDS: PANTOPRAZOLE 40 MG TABLET (FP) PO SCH (10:02)
[2018-10-26] MEDS: LISINOPRIL 10 MG TABLET (FP) PO SCH (10:02)
[2018-10-26] MEDS: PRENATAL VITAMINS W/ FOLIC ACID TABLET (FP) PO SCH (10:02)
[2018-10-26] MEDS: NICOTINE 14 MG/24 HOURS TOPICAL PATCH TD SCH (10:02)
[2018-10-26] MEDS: THIAMINE HCL 100 MG TABLET (FP) PO SCH (21:56)
[2018-10-26] MEDS: ATORVASTATIN CA 20 MG TABLET (FP) PO SCH (21:56)
[2018-10-26] MEDS: QUEtiapine FUMARATE 100 MG TABLET (FP) PO SCH (21:57)
[2018-10-26] MEDS: MELATONIN 5 MG TABLETS PO PRN (21:57)
[2018-10-27] MEDS ORDERED: METHADONE HCL 10 MG TABLET ONE (04:09)
[2018-10-27] MEDS ORDERED: METHADONE HCL 40 MG DISPERSABLE TABLET ONE (04:09)
[2018-10-27] MEDS: METHADONE 160 MG, METHADONE 20 MG PO SCH (06:17)
[2018-10-27] MEDS: GABAPENTIN 300 MG CAPSULE (FP) PO SCH ×3 (06:18→21:52)
[2018-10-27] MEDS: NICOTINE 14 MG/24 HOURS TOPICAL PATCH TD SCH (10:18)
[2018-10-27] MEDS: PANTOPRAZOLE 40 MG TABLET (FP) PO SCH (10:18)
[2018-10-27] MEDS: PRENATAL VITAMINS W/ FOLIC ACID TABLET (FP) PO SCH (10:18)
[2018-10-27] MEDS: LISINOPRIL 10 MG TABLET (FP) PO SCH (10:18)
[2018-10-27] MEDS: ATORVASTATIN CA 20 MG TABLET (FP) PO SCH (21:51)
[2018-10-27] MEDS: QUEtiapine FUMARATE 100 MG TABLET (FP) PO SCH (21:52)
[2018-10-27] MEDS: THIAMINE HCL 100 MG TABLET (FP) PO SCH (21:52)
[2018-10-28] MEDS ORDERED: METHADONE HCL 10 MG TABLET ONE (04:00)
[2018-10-28] MEDS ORDERED: METHADONE HCL 40 MG DISPERSABLE TABLET ONE (04:00)
[2018-10-28] MEDS: GABAPENTIN 300 MG CAPSULE (FP) PO SCH ×3 (06:07→21:40)
[2018-10-28] MEDS: METHADONE 160 MG, METHADONE 20 MG PO SCH (06:07)
[2018-10-28] MEDS: LISINOPRIL 10 MG TABLET (FP) PO SCH (10:23)
[2018-10-28] MEDS: PRENATAL VITAMINS W/ FOLIC ACID TABLET (FP) PO SCH (10:23)
[2018-10-28] MEDS: PANTOPRAZOLE 40 MG TABLET (FP) PO SCH (10:23)
[2018-10-28] MEDS: NICOTINE 14 MG/24 HOURS TOPICAL PATCH TD SCH (10:23)
[2018-10-28] MEDS: ATORVASTATIN CA 20 MG TABLET (FP) PO SCH (21:39)
[2018-10-28] MEDS: MELATONIN 5 MG TABLETS PO PRN (21:39)
[2018-10-28] MEDS: THIAMINE HCL 100 MG TABLET (FP) PO SCH (21:39)
[2018-10-28] MEDS: QUEtiapine FUMARATE 100 MG TABLET (FP) PO SCH (21:40)
[2018-10-29] MEDS ORDERED: METHADONE HCL 40 MG DISPERSABLE TABLET ONE (03:15)
[2018-10-29] MEDS ORDERED: METHADONE HCL 10 MG TABLET ONE (03:15)
[2018-10-29] MEDS: METHADONE 160 MG, METHADONE 20 MG PO SCH (06:20)
[2018-10-29] MEDS: GABAPENTIN 300 MG CAPSULE (FP) PO SCH ×3 (06:21→21:57)
[2018-10-29] MEDS: NICOTINE 14 MG/24 HOURS TOPICAL PATCH TD SCH (10:29)
[2018-10-29] MEDS: LISINOPRIL 10 MG TABLET (FP) PO SCH (10:29)
[2018-10-29] MEDS: PRENATAL VITAMINS W/ FOLIC ACID TABLET (FP) PO SCH (10:29)
[2018-10-29] MEDS: PANTOPRAZOLE 40 MG TABLET (FP) PO SCH (10:29)
[2018-10-29] MEDS: ATORVASTATIN CA 20 MG TABLET (FP) PO SCH (21:56)
[2018-10-29] MEDS: QUEtiapine FUMARATE 100 MG TABLET (FP) PO SCH (21:57)
[2018-10-29] MEDS: THIAMINE HCL 100 MG TABLET (FP) PO SCH (22:25)
[2018-10-30] MEDS ORDERED: METHADONE HCL 10 MG TABLET ONE (04:24)
[2018-10-30] MEDS ORDERED: METHADONE HCL 40 MG DISPERSABLE TABLET ONE (04:25)
[2018-10-30] MEDS: GABAPENTIN 300 MG CAPSULE (FP) PO SCH ×3 (06:26→22:00)
[2018-10-30] MEDS: METHADONE 160 MG, METHADONE 20 MG PO SCH (06:26)
[2018-10-30] MEDS: LISINOPRIL 10 MG TABLET (FP) PO SCH (10:22)
[2018-10-30] MEDS: PANTOPRAZOLE 40 MG TABLET (FP) PO SCH (10:22)
[2018-10-30] MEDS: PRENATAL VITAMINS W/ FOLIC ACID TABLET (FP) PO SCH (10:22)
[2018-10-30] MEDS: NICOTINE 14 MG/24 HOURS TOPICAL PATCH TD SCH (10:23)
[2018-10-30] MEDS: THIAMINE HCL 100 MG TABLET (FP) PO SCH (21:59)
[2018-10-30] MEDS: QUEtiapine FUMARATE 100 MG TABLET (FP) PO SCH (22:00)
[2018-10-30] MEDS: ATORVASTATIN CA 20 MG TABLET (FP) PO SCH (22:00)
[2018-10-31] MEDS ORDERED: METHADONE HCL 10 MG TABLET ONE (04:12)
[2018-10-31] MEDS ORDERED: METHADONE HCL 40 MG DISPERSABLE TABLET ONE (04:13)
[2018-10-31] MEDS: METHADONE 160 MG, METHADONE 20 MG PO SCH (06:18)
[2018-10-31] MEDS: GABAPENTIN 300 MG CAPSULE (FP) PO SCH ×3 (06:18→21:17)
[2018-10-31] MEDS: PRENATAL VITAMINS W/ FOLIC ACID TABLET (FP) PO SCH (10:19)
[2018-10-31] MEDS: LISINOPRIL 10 MG TABLET (FP) PO SCH (10:20)
[2018-10-31] MEDS: NICOTINE 14 MG/24 HOURS TOPICAL PATCH TD SCH (10:20)
[2018-10-31] MEDS: PANTOPRAZOLE 40 MG TABLET (FP) PO SCH (10:20)
[2018-10-31] MEDS: QUEtiapine FUMARATE 100 MG TABLET (FP) PO SCH (21:17)
[2018-10-31] MEDS: ATORVASTATIN CA 20 MG TABLET (FP) PO SCH (21:17)
[2018-10-31] MEDS: THIAMINE HCL 100 MG TABLET (FP) PO SCH (21:17)
[2018-11-01] MEDS ORDERED: METHADONE HCL 40 MG DISPERSABLE TABLET ONE (03:54)
[2018-11-01] MEDS ORDERED: METHADONE HCL 10 MG TABLET ONE (03:54)
[2018-11-01] MEDS: GABAPENTIN 300 MG CAPSULE (FP) PO SCH ×3 (06:14→21:50)
[2018-11-01] MEDS: METHADONE 160 MG, METHADONE 20 MG PO SCH (06:15)
[2018-11-01] MEDS: LISINOPRIL 10 MG TABLET (FP) PO SCH (10:27)
[2018-11-01] MEDS: NICOTINE 14 MG/24 HOURS TOPICAL PATCH TD SCH (10:27)
[2018-11-01] MEDS: PRENATAL VITAMINS W/ FOLIC ACID TABLET (FP) PO SCH (10:27)
[2018-11-01] MEDS: PANTOPRAZOLE 40 MG TABLET (FP) PO SCH (10:27)
[2018-11-01] MEDS: THIAMINE HCL 100 MG TABLET (FP) PO SCH (21:50)
[2018-11-01] MEDS: ATORVASTATIN CA 20 MG TABLET (FP) PO SCH (21:50)
[2018-11-01] MEDS: QUEtiapine FUMARATE 100 MG TABLET (FP) PO SCH (21:51)
[2018-11-02] MEDS ORDERED: METHADONE HCL 10 MG TABLET ONE (04:15)
[2018-11-02] MEDS ORDERED: METHADONE HCL 40 MG DISPERSABLE TABLET ONE (04:15)
[2018-11-02] MEDS: METHADONE 160 MG, METHADONE 20 MG PO SCH (06:20)
[2018-11-02] MEDS: GABAPENTIN 300 MG CAPSULE (FP) PO SCH ×3 (06:21→21:13)
[2018-11-02] MEDS: NICOTINE 14 MG/24 HOURS TOPICAL PATCH TD SCH (10:32)
[2018-11-02] MEDS: PRENATAL VITAMINS W/ FOLIC ACID TABLET (FP) PO SCH (10:32)
[2018-11-02] MEDS: LISINOPRIL 10 MG TABLET (FP) PO SCH (10:32)
[2018-11-02] MEDS: PANTOPRAZOLE 40 MG TABLET (FP) PO SCH (10:32)
[2018-11-02] MEDS: THIAMINE HCL 100 MG TABLET (FP) PO SCH (21:13)
[2018-11-02] MEDS: ATORVASTATIN CA 20 MG TABLET (FP) PO SCH (21:13)
[2018-11-02] MEDS: QUEtiapine FUMARATE 100 MG TABLET (FP) PO SCH (21:13)
[2018-11-03] MEDS ORDERED: METHADONE HCL 40 MG DISPERSABLE TABLET ONE (03:08)
[2018-11-03] MEDS ORDERED: METHADONE HCL 10 MG TABLET ONE (03:08)
[2018-11-03] MEDS: METHADONE 160 MG, METHADONE 20 MG PO SCH (06:00)
[2018-11-03] MEDS: GABAPENTIN 300 MG CAPSULE (FP) PO SCH ×3 (06:00→21:35)
[2018-11-03] MEDS: PRENATAL VITAMINS W/ FOLIC ACID TABLET (FP) PO SCH (09:41)
[2018-11-03] MEDS: PANTOPRAZOLE 40 MG TABLET (FP) PO SCH (09:41)
[2018-11-03] MEDS: NICOTINE 14 MG/24 HOURS TOPICAL PATCH TD SCH (09:41)
[2018-11-03] MEDS: LISINOPRIL 10 MG TABLET (FP) PO SCH (09:41)
[2018-11-03] MEDS: THIAMINE HCL 100 MG TABLET (FP) PO SCH (21:35)
[2018-11-03] MEDS: ATORVASTATIN CA 20 MG TABLET (FP) PO SCH (21:35)
[2018-11-03] MEDS: QUEtiapine FUMARATE 100 MG TABLET (FP) PO SCH (21:35)
[2018-11-04] MEDS ORDERED: METHADONE HCL 40 MG DISPERSABLE TABLET ONE (03:19)
[2018-11-04] MEDS ORDERED: METHADONE HCL 10 MG TABLET ONE (03:19)
[2018-11-04] MEDS: GABAPENTIN 300 MG CAPSULE (FP) PO SCH ×3 (06:15→21:34)
[2018-11-04] MEDS: METHADONE 160 MG, METHADONE 20 MG PO SCH (06:15)
[2018-11-04] MEDS: LISINOPRIL 10 MG TABLET (FP) PO SCH (10:18)
[2018-11-04] MEDS: PRENATAL VITAMINS W/ FOLIC ACID TABLET (FP) PO SCH (10:18)
[2018-11-04] MEDS: NICOTINE 14 MG/24 HOURS TOPICAL PATCH TD SCH (10:19)
[2018-11-04] MEDS: PANTOPRAZOLE 40 MG TABLET (FP) PO SCH (10:19)
[2018-11-04] MEDS: QUEtiapine FUMARATE 100 MG TABLET (FP) PO SCH (21:33)
[2018-11-04] MEDS: THIAMINE HCL 100 MG TABLET (FP) PO SCH (21:33)
[2018-11-04] MEDS: ATORVASTATIN CA 20 MG TABLET (FP) PO SCH (21:33)
[2018-11-05] MEDS ORDERED: METHADONE HCL 40 MG DISPERSABLE TABLET ONE (04:02)
[2018-11-05] MEDS ORDERED: METHADONE HCL 10 MG TABLET ONE (04:02)
[2018-11-05] MEDS: METHADONE 160 MG, METHADONE 20 MG PO SCH (06:07)
[2018-11-05] MEDS: GABAPENTIN 300 MG CAPSULE (FP) PO SCH ×3 (06:07→21:50)
[2018-11-05] MEDS: NICOTINE 14 MG/24 HOURS TOPICAL PATCH TD SCH (10:10)
[2018-11-05] MEDS: PRENATAL VITAMINS W/ FOLIC ACID TABLET (FP) PO SCH (10:10)
[2018-11-05] MEDS: LISINOPRIL 10 MG TABLET (FP) PO SCH (10:10)
[2018-11-05] MEDS: PANTOPRAZOLE 40 MG TABLET (FP) PO SCH (10:10)
[2018-11-05] MEDS: THIAMINE HCL 100 MG TABLET (FP) PO SCH (21:49)
[2018-11-05] MEDS: ATORVASTATIN CA 20 MG TABLET (FP) PO SCH (21:50)
[2018-11-05] MEDS: QUEtiapine FUMARATE 100 MG TABLET (FP) PO SCH (21:50)
[2018-11-06] MEDS ORDERED: METHADONE HCL 40 MG DISPERSABLE TABLET ONE (03:56)
[2018-11-06] MEDS ORDERED: METHADONE HCL 10 MG TABLET ONE (03:56)
[2018-11-06] MEDS: GABAPENTIN 300 MG CAPSULE (FP) PO SCH ×3 (06:04→21:56)
[2018-11-06] MEDS: METHADONE 160 MG, METHADONE 20 MG PO SCH (06:04)
--- NOTE | 2018-11-06 09:43 | PN ---
[facility] Progress Note Note: PATIENT SEEN FOR C/O "BUMP ON LEFT UPPER BACK AREA". PATIENT DENIES FEVER, DECREASED MOBILITY TO LEFT ARM. STATES HE HAD BUMP FOR A FEW WEEKS BUT NOW IT IS TENDER. Vital Signs Temperature 98.1 F 11/06/18 06:53 Pulse Rate 61 11/06/18 06:53 Respiratory Rate 11/06/18 06:53 Blood Pressure 131/93 11/06/18 06:53 O2 Sat by Pulse Oximetry (%) PE: ALERT AND ORIENTED X 3 SKIN: + LEFT SHOULDER AREA WITH INFLAMED CYST, MILD TENDERNESS. NO DISCHARGE PRESENT EXT FULL ROM, AMB AD GREG A/P: INFLAMED CYST WILL START KEFLEX 500MG EVERY 6 HR X 5 DAYS CONTINUE TO MONITOR CLINICALLY FOR D/C 11/09/18 PATIENT TO FOLLOW UP WITH [facility]
[2018-11-06] MEDS: PRENATAL VITAMINS W/ FOLIC ACID TABLET (FP) PO SCH (10:17)
[2018-11-06] MEDS: LISINOPRIL 10 MG TABLET (FP) PO SCH (10:18)
[2018-11-06] MEDS: NICOTINE 14 MG/24 HOURS TOPICAL PATCH TD SCH (10:18)
[2018-11-06] MEDS: PANTOPRAZOLE 40 MG TABLET (FP) PO SCH (10:18)
[2018-11-06] MEDS: CEPHALEXIN MONOHYDRATE 500 MG CAPSULE (UD) PO SCH ×3 (13:06→23:33)
[2018-11-06] MEDS: ATORVASTATIN CA 20 MG TABLET (FP) PO SCH (21:56)
[2018-11-06] MEDS: THIAMINE HCL 100 MG TABLET (FP) PO SCH (21:56)
[2018-11-06] MEDS: QUEtiapine FUMARATE 100 MG TABLET (FP) PO SCH (21:56)
[2018-11-07] MEDS ORDERED: METHADONE HCL 10 MG TABLET ONE (03:14)
[2018-11-07] MEDS ORDERED: METHADONE HCL 40 MG DISPERSABLE TABLET ONE (03:14)
[2018-11-07] MEDS: CEPHALEXIN MONOHYDRATE 500 MG CAPSULE (UD) PO SCH ×4 (06:32→23:13)
[2018-11-07] MEDS: GABAPENTIN 300 MG CAPSULE (FP) PO SCH ×3 (06:32→21:58)
[2018-11-07] MEDS: METHADONE 160 MG, METHADONE 20 MG PO SCH (06:32)
[2018-11-07] MEDS: NICOTINE 14 MG/24 HOURS TOPICAL PATCH TD SCH (09:21)
[2018-11-07] MEDS: LISINOPRIL 10 MG TABLET (FP) PO SCH (09:22)
[2018-11-07] MEDS: PANTOPRAZOLE 40 MG TABLET (FP) PO SCH (09:22)
[2018-11-07] MEDS: PRENATAL VITAMINS W/ FOLIC ACID TABLET (FP) PO SCH (09:22)
[2018-11-07] MEDS: QUEtiapine FUMARATE 100 MG TABLET (FP) PO SCH (21:57)
[2018-11-07] MEDS: THIAMINE HCL 100 MG TABLET (FP) PO SCH (21:57)
[2018-11-07] MEDS: ATORVASTATIN CA 20 MG TABLET (FP) PO SCH (21:58)
[2018-11-08] MEDS ORDERED: METHADONE HCL 40 MG DISPERSABLE TABLET ONE (03:07)
[2018-11-08] MEDS ORDERED: METHADONE HCL 10 MG TABLET ONE (03:07)
[2018-11-08] MEDS: METHADONE 160 MG, METHADONE 20 MG PO SCH (06:09)
[2018-11-08] MEDS: CEPHALEXIN MONOHYDRATE 500 MG CAPSULE (UD) PO SCH ×4 (06:09→23:10)
[2018-11-08] MEDS: GABAPENTIN 300 MG CAPSULE (FP) PO SCH ×3 (06:09→21:48)
[2018-11-08] MEDS: LISINOPRIL 10 MG TABLET (FP) PO SCH (10:07)
[2018-11-08] MEDS: PANTOPRAZOLE 40 MG TABLET (FP) PO SCH (10:07)
[2018-11-08] MEDS: PRENATAL VITAMINS W/ FOLIC ACID TABLET (FP) PO SCH (10:07)
[2018-11-08] MEDS: NICOTINE 14 MG/24 HOURS TOPICAL PATCH TD SCH (10:08)
[2018-11-08] MEDS: ATORVASTATIN CA 20 MG TABLET (FP) PO SCH (21:48)
[2018-11-08] MEDS: QUEtiapine FUMARATE 100 MG TABLET (FP) PO SCH (21:49)
[2018-11-08] MEDS: THIAMINE HCL 100 MG TABLET (FP) PO SCH (21:49)
[2018-11-09] MEDS ORDERED: METHADONE HCL 10 MG TABLET ONE (04:12)
[2018-11-09] MEDS ORDERED: METHADONE HCL 40 MG DISPERSABLE TABLET ONE (04:12)
[2018-11-09] MEDS: CEPHALEXIN MONOHYDRATE 500 MG CAPSULE (UD) PO SCH (05:58)
[2018-11-09] MEDS: GABAPENTIN 300 MG CAPSULE (FP) PO SCH (05:58)
[2018-11-09] MEDS ORDERED: METHADONE 160 MG, METHADONE 20 MG PO SCH (06:00)
[2018-11-09 06:53] VITALS: TEMP 97.4
[2018-11-09 07:50] VITALS: BP 131/86; PULSE 74
[2018-11-09] MEDS: PRENATAL VITAMINS W/ FOLIC ACID TABLET (FP) PO SCH (09:12)
[2018-11-09] MEDS: NICOTINE 14 MG/24 HOURS TOPICAL PATCH TD SCH (09:13)
[2018-11-09] MEDS: PANTOPRAZOLE 40 MG TABLET (FP) PO SCH (09:13)
[2018-11-09] MEDS: LISINOPRIL 10 MG TABLET (FP) PO SCH (09:13)
--- NOTE | 2018-11-09 12:16 | PN ---
S Progress Note Note: REHAB DISCHARGE NOTE: PATIENT SCHEDULED FOR DISCHARGE TODAY FROM REHAB. PATIENT STATES HE ACCOMPLISHED ALL REHAB GOALS. PATIENT IS MEDICALLY STABLE AND DENIES SI/HI. HE IS TO FOLLOW UP WITH HIS ALICE [facility] TODAY AND ENCOURAGED TO ATTEND GROUP MEETINGS TO PREVENT RELAPSE. PATIENT ALSO ENCOURAGED TO FOLLOW UP WITH PCP WITHIN ONE WEEK OF DISCHARGE TO CONTINUE MEDICAL MANAGEMENT. ALL MEDICAL MEDICATIONS SENT TO PREFERRED PHARMACY. Vital Signs Temperature 97.4 F L 11/09/18 06:00 Pulse Rate 74 11/09/18 07:45 Respiratory Rate 20 11/09/18 07:45 Blood Pressure 131/86 11/09/18 07:45 O2 Sat by Pulse Oximetry (%)
== END 2018-11-09 09:35 | disposition home or self-care (01) | DRG 772 ==
LOC: YASAS 18:57 → Y3W 19:29
PROVIDERS: ADMIT Psychiatry & Neurology Psychiatry; ATTEND Psychiatry & Neurology Psychiatry
PROC: HZ42ZZZ Group Counseling for Substance Abuse Treatment, Cognitive-Behavioral (ICD-10-PCS; principal; 2018-10-12)
DX: F13.20 Sedative, hypnotic or anxiolytic dependence, uncomplicated (principal); F14.20 Cocaine dependence, uncomplicated; F11.20 Opioid dependence, uncomplicated; F17.210 Nicotine dependence, cigarettes, uncomplicated; F31.9 Bipolar disorder, unspecified; F43.10 Post-traumatic stress disorder, unspecified; D64.9 Anemia, unspecified; I10 Essential (primary) hypertension; J44.9 Chronic obstructive pulmonary disease, unspecified; E78.5 Hyperlipidemia, unspecified; E78.00 Pure hypercholesterolemia, unspecified; Z86.69 Personal history of other diseases of the nervous system and sense organs; Z85.828 Personal history of other malignant neoplasm of skin; C46.0 Kaposi's sarcoma of skin